=== PATIENT | male | born 1985 | race Caucasian/White ===

== ENCOUNTER → 2024-11-30 15:50 | Outpatient (REF) | payer BC, SELFPAY | LOC: RAD 15:50 | PROVIDERS: ATTENDING PHYSICIAN Specialist; FAMILY PHYSICIAN Student in an Organized Health Care Education/Training Program | DX: Z85.528 Personal history of other malignant neoplasm of kidney (principal) | CPT/HCPCS: 71046 ==

== ENCOUNTER → 2025-02-26 10:03 | Outpatient (REF) | payer BC, SELFPAY | LOC: MRI 3T 10:03 | PROVIDERS: ATTENDING PHYSICIAN Specialist; FAMILY PHYSICIAN Student in an Organized Health Care Education/Training Program | DX: Z85.528 Personal history of other malignant neoplasm of kidney (principal) | CPT/HCPCS: 74183; A9575 ==